=== PATIENT | female | born 1975 | race Caucasian/White ===

== ENCOUNTER → 2019-06-25 12:07 | Outpatient (CLI) | payer SELFPAY ==
--- NOTE | 2019-06-25 12:11 | US_ITS ---
HISTORY: GOITERDIFFICULTY SWALLOWING PT ON SYNTHROID EXAMINATION: US Thyroid (eg thyroid, parathyroid, parotid) TECHNIQUE: Kitchen scale and color doppler imaging was performed of the thyroid gland. COMPARISON: None FINDINGS: RIGHT THYROID LOBE: Measures 6.8 x 2.3 x 1.7 cm. Heterogeneous l echotexture with normal vascularity. No definitive thyroid nodules are present. LEFT THYROID LOBE: Measures 7.1 x 2.6 x 2.2 cm. Heterogeneous echotexture with normal vascularity. No definitive thyroid nodules are present. ISTHMUS: Is thickened to 11 mm and heterogeneous. No thyroid nodules are present. US/Thyroid IMPRESSION: Thickened and enlarged thyroid gland consistent with a benign multinodular goiter without definitive nodule differentiated from the background of heterogeneous tissue at 0256 Reported and signed by: Morgan Jones MD Electronically Signed: Morgan Jones MD at 2:55 EDT Tel , Service support ,
== END ==
PROVIDERS: Family Provider Internal Medicine; PCP Internal Medicine; Referring Provider Internal Medicine; Visit Provider Internal Medicine
DX: E04.9 Nontoxic goiter, unspecified (principal)
CPT/HCPCS: 76536

== ENCOUNTER 2022-01-17 12:38 | Outpatient (CLI) | payer SELFPAY ==
--- NOTE | 2022-01-17 10:30 | EMB_PTH ---
PATIENT: JERRELL FONTANA [facility]: [facility] U#:[id number] AGE/SX: 46/F ROOM: RE01/17/[address]: DREA Handy : 1975 BED: DIS: 01/17/2022 SPEC #: [id number] RECD: 01/17/22 12:18 STATUS: PARI RETorsten #: [id number] OLIVE: 01/17/22 10:[address]: Sissy Perea NP DEPT: SURGICAL PATHOLOGY RECD BY: Stefanie Mace ENTERED: 01/17/22 12:56 SP TYPE: ENDOM BX/C RENZO DR: Dr. Marilyn Lowe DO Tissues: Endometrium, NOS Procedures: Surgery Specimen Level IV HEADER OPERATION: Endometrial biopsy PRE-OP DIAGNOSIS: Abnormal uterine bleeding TISSUE SUBMITTED: Endometrial biopsy MICROSCOPIC DIAGNOSIS Endometrial biopsy: Proliferative endometrium with glandular and stromal breakdown. See comment. BRAD:nathanael 01/18/2022 COMMENT A polypoid fragment of benign endometrial tissue with cystic changes is also noted, may represent fragment of benign endometrial polyp. MICROSCOPIC DESCRIPTION Slides are reviewed. GROSS DESCRIPTION Received is one container labeled with the patient's name and not further designated. The specimen consists of multiple irregular fragments of red-nunez soft tissue that in aggregate measure 3 x 1.5 x 0.1 cm. The specimen is totally submitted in one cassette. / AM:nathanael 01/17/2022 TC:5 CPT: 76245
[2022-01-24 11:12] LABS: HPV APTIMA, High Risk Negative (Negative)
== END 2022-01-17 23:59 | disposition home or self-care (01) ==
LOC: LABSPEC 12:38
PROVIDERS: PCP Internal Medicine; Referring Provider Nurse Practitioner Women's Health; Visit Provider Nurse Practitioner Women's Health
DX: Z12.4 Encounter for screening for malignant neoplasm of cervix (principal); N93.9 Abnormal uterine and vaginal bleeding, unspecified
CPT/HCPCS: 87624; 88175; 88305; G0145

== ENCOUNTER → 2022-01-25 | Outpatient (CLI) | payer SELFPAY ==
--- NOTE | 2022-01-25 12:21 | US_ITS ---
INDICATION: pelvic pain, irregular menses EXAMINATION: US Pelvis Non OB Complete With Transvaginal Imaging TECHNIQUE: Transabdominal and transvaginal pelvic ultrasound was performed. Grayscale, spectral waveform, and color flow Doppler evaluation of the adnexa. COMPARISON: None. FINDINGS: UTERUS: Retroverted. The uterus measures 9.5 x 6.3 x 4.8 cm. There is no uterine mass. The endometrial stripe measures 5 mm in AP diameter which is within normal limits. RIGHT OVARY: Measures 2.9 x 2.2 x 2.1. Non-enlarged, normal echogenicity. There is normal arterial inflow and venous outflow present in the right ovary. LEFT OVARY: Measures 2.9 x 3.3 x 2.3 cm. Non-enlarged, normal echogenicity. There is normal arterial inflow and venous outflow present in the left ovary. FREE FLUID: None. US/Transvaginal Non- IMPRESSION: Normal pelvic ultrasound. Electronically Signed: Juan Wagner MD at 22:25 EDT ,
--- NOTE | 2022-01-25 12:21 | US_ITS ---
INDICATION: pelvic pain, irregular menses EXAMINATION: US Pelvis Non OB Complete With Transvaginal Imaging TECHNIQUE: Transabdominal and transvaginal pelvic ultrasound was performed. Grayscale, spectral waveform, and color flow Doppler evaluation of the adnexa. COMPARISON: None. FINDINGS: UTERUS: Retroverted. The uterus measures 9.5 x 6.3 x 4.8 cm. There is no uterine mass. The endometrial stripe measures 5 mm in AP diameter which is within normal limits. RIGHT OVARY: Measures 2.9 x 2.2 x 2.1. Non-enlarged, normal echogenicity. There is normal arterial inflow and venous outflow present in the right ovary. LEFT OVARY: Measures 2.9 x 3.3 x 2.3 cm. Non-enlarged, normal echogenicity. There is normal arterial inflow and venous outflow present in the left ovary. FREE FLUID: None. US/Pelvic (Non ) IMPRESSION: Normal pelvic ultrasound. Electronically Signed: Juan Wagner MD at 22:25 EDT ,
--- NOTE | 2022-01-25 12:21 | BI_ITS ---
MAMMOGRAPHY - BILATERAL SCREENING 3-D TOMOSYNTHESIS REASON FOR EXAM: Female, 46 years old. screening for breast cancer PERTINENT HISTORY: No significant family history. TECHNIQUE: 2-D mammograms and 3-D Tomosynthesis of the breast (s) were performed. CAD was performed. COMPARISON: None. FINDINGS: The breast composition is heterogeneously dense that can obscure small breast masses. Scattered benign calcifications are seen. No dense spiculated masses or suspicious microcalcifications are identified. No architectural distortion is identified. There is no skin thickening or retraction. There has been no significant change since the prior study. BI/SCRN MAMM (CAD)W/SARAH BILAT IMPRESSION: No mammographic signs of malignancy. Routine yearly mammograms recommended. ASSESSMENT CATEGORY: BIRADS Category 1: Negative. A letter regarding these results will be sent to the patient by the facility within 30 days. FOLLOW UP RECOMMENDATION: Yearly follow up mammogram recommended. (A) Approximately 10% of breast cancers are not detected by mammography. A normal mammogram should not delay biopsy of a clinically suspicious abnormality. Electronically Signed: Keyur Forrest MD at 11:07 EDT ,
== END | disposition home or self-care (01) ==
LOC: OPUS 12:18
PROVIDERS: PCP Internal Medicine; Visit Provider Nurse Practitioner Women's Health
DX: R10.2 Pelvic and perineal pain (principal); Z12.31 Encounter for screening mammogram for malignant neoplasm of breast
CPT/HCPCS: 76830; 76856; 77063; 77067; 93976

== ENCOUNTER → 2022-03-30 | Outpatient (CLI) | payer SELFPAY ==
[2022-03-30 17:39] LABS: Anion Gap 8 (5-15); BUN 14 mg/dL (7-18); BUN/Creat Ratio 19.9 RATIO (10-20); Calcium,Total 9.5 mg/dL (8.5-10.1); Chloride 107 mmol/L (98-107); EST Glomerular Filtration Rate 95 mL/min (>60); Est Glom Filt Rate - Afr Amer 115 mL/min (>60); Glucose 94 mg/dL (74-106); Magnesium 2.2 mg/dL (1.6-2.6); Potassium 3.8 mmol/L (3.5-5.1); Sodium Level 139 mmol/L (136-145)
== END | disposition home or self-care (01) ==
LOC: LAB 16:24
PROVIDERS: PCP Internal Medicine; Referring Provider Internal Medicine Cardiovascular Disease; Visit Provider Internal Medicine Cardiovascular Disease
DX: Z01.810 Encounter for preprocedural cardiovascular examination (principal); I34.1 Nonrheumatic mitral (valve) prolapse; R94.31 Abnormal electrocardiogram [ECG] [EKG]
CPT/HCPCS: 36415; 80048; 83735

== ENCOUNTER → 2022-04-02 | Outpatient (CLI) | payer SELFPAY ==
--- NOTE | 2022-04-02 10:16 | ECHOD_ITS ---
Reason For Study: ABN EKG Procedure This was a 2D Doppler, Color Flow transthoracic echocardiogram. The exam was of adequate technical quality. Exam performed in department. Left Ventricle Normal LV size. Left ventricular systolic function is normal. The estimated ejection fraction is 60 %. No evidence for diastolic dysfunction. No regional wall motion abnormalities noted. Right Ventricle Normal RV size. Normal systolic function. Atria Normal left atrium. Normal right atrium. No doppler evidence for ASD. Mitral Valve There is no mitral annular calcification. Normal mitral valve. Trivial mitral valve insufficiency. Tricuspid Valve Normal tricuspid valve. Trivial tricuspid valve insufficiency. Right ventricular systolic pressure estimated to be 25 mmHg. Aortic Valve Trisinus/trileaflet aortic valve. Normal aortic valve. Pulmonic Valve The pulmonic valve is not well visualized. Trivial pulmonic valve insufficiency. Great Vessels Normal sized aortic root. Pericardium/Pleural No pericardial effusion. MMode/2D Measurements & Calculations LVIDd: 5.2 cm IVSd: 0.92 cm Ao root diam: 3.4 cm LVIDs: 3.8 cm LVPWd: 0.80 cm RVDd: 3.4 cm FS: 27.3 % LAV(MOD-bp): 47.2 ml LVAd ap4: 33.5 cm2 SV(MOD-sp4): 69.9 ml LAV(MOD-bp) Indexed: 21.8 ml/m2 LVLd ap4: 8.5 cm LAV(MOD-sp2): 52.4 ml EDV(MOD-sp4): 111.0 ml LAV(MOD-sp4): 40.3 ml EDV(sp4-el): 111.9 ml LVAs ap4: 18.2 cm2 LVLs ap4: 7.0 cm ESV(MOD-sp4): 41.1 ml ESV(sp4-el): 40.2 ml EF(MOD-sp4): 63.0 % EF(sp4-el): 64.1 % SV(sp4-el): 71.7 ml LA A4 area: 16.1 cm2 LA dimension(2D): 4.2 cm RA A4 area: 15.7 cm2 Doppler Measurements & Calculations MV E max oscar: 93.8 cm/sec Lat Peak E' Oscar: 11.1 cm/sec Med Peak E' Oscar: 8.0 cm/sec MV A max oscar: 75.0 cm/sec E/E' lat: 8.5 E/E' med: 11.7 MV E/A: 1.3 MV V2 max: 110.4 cm/sec MV P1/2t max oscar: 101.9 cm/sec Ao V2 max: 102.2 cm/sec MV max P.9 mmHg MV P1/2t: 124.1 msec Ao max P.2 mmHg MV V2 mean: 49.5 cm/sec MV mean P.2 mmHg MV dec slope: 240.4 cm/sec2 MV V2 VTI: 42.1 cm MVA(P1/2t): 1.8 cm2 LV V1 max: 104.2 cm/sec MR max oscar: 407.7 cm/sec PA V2 max: 86.7 cm/sec LV V1 max P.3 mmHg MR max P.5 mmHg PI dec slope: 136.4 cm/sec2 TR max oscar: 232.0 cm/sec TR max P.6 mmHg ECHO/Echo Complete Interpretation Summary Left ventricular systolic function is normal. The estimated ejection fraction is 60 %. Trivial mitral valve insufficiency. Trivial tricuspid valve insufficiency. Trivial pulmonic valve insufficiency. Right ventricular systolic pressure estimated to be 25 mmHg. No evidence for diastolic dysfunction. Ordering Physician: Juliano Castro Referring Physician: Juliano Castro Performed By: Dahlia Hernandez RCS
--- NOTE | 2022-04-02 10:16 | STEWCON_ITS ---
Reason For Study: ABN ECG/PREOP Stress Results Protocol: Henri Protocol WITH DEFINITY Maximum Predicted HR: 175 bpm Target HR: 149 bpm % Maximum Predicted HR: 81 % DurationHeart Rate Stage (mm:ss) (bpm) BP Comment BASELINE 55 122/846 CC DEFINITY FOR ENTIRE TEST STAGE 1 3:00 90 138/80 STAGE 2 3:00 92 146/86 STAGE 3 3:00 118 158/78 STAGE 4 2:00 141 / INCLINE DIFFICULTY AND HEAVIER BREATHING RECOVERY 75 112/80 Stress Duration: 11:00 mm:ss Maximum Stress HR: 141 bpm METS: 13 Baseline Echocardiogram Findings Stress Echo Wall motion Data Resting WM Intermediate WM Stress WM Resting Wall Motion Wall Motion Stress All segments Normal. All segments Hyperkinetic. Ejection Fraction 55 %. Ejection Fraction 65 %. Stress Results Heart rate response: Technically inadequate (percent predicted maximal heart rate less than 85%) Blood pressure response: Normal resting blood pressure-appropriate response Cardiac rhythm: Isolated PVC in recovery Functional capacity: Good Stopped secondary to: Dyspnea. EKG Data Baseline ECG: Sinus bradycardia; ST/T wave abnormality. Peak exercise ECG: With somatic/motion artifact with no obvious ECG changes. Symptoms with Stress No complaint of chest discomfort during exercise or recovery. ECHO/Stress Test Echo W/Contrast Interpretation Summary Contrast injection performed Negative (technically inadequate: Percent predicted maximal heart rate less matthew n 85%) stress echocardiogram Ordering Physician: Juliano Castro Referring Physician: Juliano Castro Performed By: Zenaida Mercer, DEEPALI, RVT
== END | disposition home or self-care (01) ==
PROVIDERS: PCP Internal Medicine; Referring Provider Internal Medicine Cardiovascular Disease; Visit Provider Internal Medicine Cardiovascular Disease
DX: Z01.810 Encounter for preprocedural cardiovascular examination (principal); I34.1 Nonrheumatic mitral (valve) prolapse; R94.31 Abnormal electrocardiogram [ECG] [EKG]
CPT/HCPCS: 93017; 93306; 93350; Q9957; A4216; C8928

== ENCOUNTER 2022-04-03 05:22 | Day surgery (SDC) | payer SELFPAY ==
--- NOTE | 2022-03-27 12:53 | EKG12_ITS ---
Test Reason : PRE OP Blood Pressure : / mmHG Vent. Rate : 047 BPM Atrial Rate : 047 BPM P-R Int : 158 ms QRS Dur : 092 ms QT Int : 432 ms P-R-T Axes : 038 -01 -24 degrees QTc Int : [address] & T wave abnormality, consider anterolateral ischemia Abnormal ECG Confirmed by MÓNICA TILLMAN, VENITA ([id number]), electronic news gathering editor FIDELIA SELF ([id number]) on 03/28/2022 9:35:03 AM Referred By: Abigail Desai Confirmed By:VENITA SALES MD
[2022-03-27 12:54] LABS: Hematocrit 39.2 % (37-47); Hemoglobin 13.5 g/dL (12.0-15.0); Mean Corp Hgb Conc 34.4 g/dL (32-36); Mean Corpuscular Hgb 31.7 pg (27.0-32.0); Mean Platelet Vol. 10.6 fl (6.2-12.0); Platelet Count 236 K/mm3 (150-450); RBC Distribution Width CV 12.3 % (11.6-14.6); RBC Distribution Width SD 41.3 fl (35.1-43.9); Red Blood Count 4.26 M/mm3 (4.2-5.4)
[2022-03-27 13:26] LABS: Magnesium 2.1 mg/dL (1.6-2.6); Thyroid Stim Hormone (TSH) 2.27 uIU/mL (0.358-3.74)
[2022-04-03] VITALS (10 sets, daily range): BP systolic 93–115; BP diastolic 60–81; PULSE 49–58; RESP 14–18; TEMP 36.3–37.1; O2SAT 99–100; BMI 35.0
[2022-04-03 06:04] LABS: Internal QC Validated? YES +Cl - CLEAR BKGD; Pregnancy, Urine Negative Negative
[2022-04-03] MEDS: Gabapentin 600 MG Tablet PO (06:29)
[2022-04-03] MEDS: Acetaminophen 500 MG Tablet 1000 MG PO (06:29)
[2022-04-03] MEDS: Celecoxib 200 MG Capsule 400 MG PO (06:29)
[2022-04-03 06:30] LABS: Bedside Glucose 87 mg/dL (74-106)
[2022-04-03] MEDS: Scopolamine 1mg/72hr Patch 1 PATCH TD (06:30)
[2022-04-03] MEDS: Lactated Ringers 1,000 ML 40 ML IV (06:31)
--- NOTE | 2022-04-03 06:55 | HP.PCM_ITS ---
History and Physical Date of Admission: 04/03/22 MR#: [id number] Acct: [id number] Name:JERRELL MAE Rep #: [id number] : 1975 ? ? Provider: Dr. Abigail Desai, DO Age/Sex:? 46/F ? ? [place] [facility] [place] Status: Signed Intake Vital Signs ? 03/21/2211:55 Height 5 ft 8 in Weight: 230 lb 2 oz BMI 34.9 BP 116/78 Intake Visit Reasons:?robotic hyst BS cysto Front Desk Team Member Required: No Allergies No Known Allergies Allergy (Verified 03/21/22 11:55) Medications levothyroxine 100 mcg capsule 100 mcg PO DAILY 01/17/22 [History Confirmed 03/21/22] multivitamin 1 tab PO DAILY 01/17/22 [History Confirmed 03/21/22] polyethylene glycol 3350 17 gram/dose oral powder (Miralax) 17 g PO DAILY 01/17/22 [History Confirmed 03/21/22] Post menopausal: No Patient : No : No PFSH Medical History? Hypothyroidism Family History? Other Breast cancer Social History? household members:? spouse number of children:? 3 current occupational status:? unemployed Smoking Status:? Never smoker alcohol intake:? never substance use type:? does not use what type of physical activity do you participate in:? walking seatbelt use:? always do you feel safe at home:? Yes additional social history:? - Peter HPI robotic hyst BS cysto Details: JERRELL FONTANA is a 46 year old who presents for pre-op robotic hyst. ?She has tried ocps and states that the medication makes her feel sick. she has been given options fo an ablation procedure and states that she wants something more definitive. EMB was benign and ultrasound shows a 9 cm retroverted uterus. She has a nursing history and has no questions or concerns about surgery at this time. Female Reproductive History Bleeding Duration: 7 Control Method: none Frequency of changing protection: 4-5 times a day Questions: metorrhagia: No, sexually active: Yes, dyspareunia: No and PCB: No Menopausal Symptoms: Yes hot flashes and Yes weight change Pregancy History ? ? ? 3 ? Elective abortions ? Hx Para ? ? ? 3 ? Spontaneous abortions ? Hx # Term Pregnancies ? Ectopic pregnancies ? Hx # Pregnancies ? Multiple births ? # of living children ? ? ? 3 Past Pregnancies Del. Date Name GA/Weeks Outcome Route Bth Weight Infant Gen Labor Lgth Anesthesia Del Locatn Provider FOB Unknown Valdo? ? 1995 ? Unknown Liliana ? 1997 ? Unknown Miranda ? 1998 ? ROS Const ROS Unobtainable: All systems reviewed & are unremarkable except as noted in H Resp Resp: Reports system reviewed and no additional complaints, except as documented; Denies cough GI GI: Reports as per HPI : Reports hot flashes Psych Psych: Reports system reviewed and no additional complaints, except as documented Exam Const General: cooperative, healthy appearing, comfortable and no acute distress Orientation: alert and oriented x3 HENMT Head: normal to inspection Neck Neck: normal visual inspection Chest Chest palpation & inspection: normal inspection of the chest Resp Effort & Inspection: normal respiratory effort GI Inspection: normal to inspection Palpation: soft and no hepatosplenomegaly Skin General: no rashes or lesions noted Extrem General: normal to inspection Psych Appearance: grossly normal Speech and Movement: speech and movement normal Coding Level of Care Code Off vis,est,level 5 Diagnoses Menorrhagia with irregular cycle? N92.1 Assessment and Plan Assessment and Plan (1) Menorrhagia with irregular cycle: ?Status:?Acute ?Comment: EMB (negative ), US showed a 9.5 cm uterurs), provera until surgery ?Plan: After discussing the patient's diagnosis and treatment plan options, patient wishes to proceed with surgical management.? I have discussed with the patient the risks, benefits, and alternatives of the procedure which include but are not limited to risks of anesthesia, bleeding, infection, possible damage to bowel, bladder, or surrounding vasculature which could lead to additional surgery to evaluate any complications.? Patient agrees to procedure and wishes to proceed.? ACOG/uptodate references given for additional information regarding procedure.? Plan for total robotic hysterectomy, bilateral salpingectomy, cystoscopy. ERAS plan discussed. pt had an abnormal pre-op EKG, this was cleared by Cardiology via a negative stress test and we were given the ok to proceed with surgery. UPDATE- I have seen the patient and performed any clinically relevant updates to the history and physical exam. Abigail Desai,
--- NOTE | 2022-04-03 06:56 | PCM.DC ---
Discharge Instructions Diet Discharge Diet: No restrictions Activity May resume sexual activity in: 6 weeks Weight Bearing Status: Full weight bearing Dressing / Incision Call your doctor if your incision/area has: Continuous Slow Oozing, Sudden Increased Bleeding, Increased Pain/ Swelling, Increased Redness and Foul Smelling Discharge Call your doctor if you observe: Fever of 101 or Higher, Using more than 1 pad per hour, Shortness of breath, Chest pain and Uncontrolled pain Suture Line Care: Avoid Pulling/Pushing and Avoid Pinching/Bending Remove Dressing in: 1 week (if present) Cleanse incision/area with: Soap & Water and Keep Dressing Clean & Dry Follow Up Care Please Follow Up With: Abigail Desai DO When: Call to make an appointment with your doctor for a postop visit in 2 and 6 weeks Test Results: Test results from this visit will be discussed in further detail at your follow-up appointment, if applicable. Discharge Plan Admission Primary Reason for Your Visit: hysterectomy Attending Provider: Abigail Desai Primary Care Provider: Marilyn Lowe Consulting Providers: Ibrahima Oh Discharge Orders/Prescriptions Prescriptions: New ibuprofen 600 mg tablet 600 mg PO Q6H PRN (Reason: pain) 7 Days Qty: 30 0RF oxycodone-acetaminophen [Percocet] 5-325 mg tablet 1 tab PO Q4H PRN (Reason: pain) 7 Days Qty: 30 0RF Continued multivitamin Tablet 1 tab PO DAILY levothyroxine 100 mcg capsule 100 mcg PO DAILY Rx Instructions: 100 mcg x 6 days, 200mcg q Saturday polyethylene glycol 3350 [Miralax] 17 gram/dose powder 17 g PO DAILY Ubrelvy 100 mg tablet 1 tab PO PRN PRN (Reason: Headache) Label Comments: TAKE 1 TABLET BY MOUTH AT ONSET OF HEADACHE Other Ambulatory Orders: ,Urine (Routine) Timeframe: 20220403 Facility: [facility] - Location: Laboratory Ordered By: Dr. Abigail Desai 12 Lead EKG (Routine) Timeframe: 20220327 Location: None Selected Ordered By: Dr. Ibrahima Oh Referrals / Follow Up: Marilyn Lowe DO [Primary Care Provider] - Disposition Disposition (needs filled in before D/C Order can be placed): Home, Self Care
[2022-04-03] MEDS: Cefazolin 2 GM in 0.9% Normal Saline 100 ML IV (07:27)
--- NOTE | 2022-04-03 07:30 | HYST_PTH ---
PATIENT: JERRELL FONTANA [place] [facility] [place][id number] AGE/SX: 46/F ROOM: RE04/03/[address]: Dr. Abigail Desai DO : 1975 BED: DIS: 04/03/2022 SPEC #: [id number] RECD: 04/03/22 09:50 STATUS: PARI RETorsten #: [id number] OLIVE: 04/03/22 07:[address]: Abigail Desai DEPT: SURGICAL PATHOLOGY RECD BY: Stefanie Mace ENTERED: 04/03/22 10:09 SP TYPE: HYSTERECT OTHR DR: MD Dr. Marilyn Daugherty DO Tissues: Uterus, NOS Procedures: Surgery Specimen Level V HEADER OPERATION: ERAS, robotic hysterectomy, salpingectomy, cysto PRE-OP DIAGNOSIS: Menorrhagia with irregular cycle TISSUE SUBMITTED: Cervix, uterus, bilateral fallopian tubes MICROSCOPIC DIAGNOSIS Uterus, cervix, bilateral fallopian tubes, hysterectomy and bilateral salpingectomy: Cervix ? mild chronic cystic cervicitis. Endometrium ? proliferative endometrium. Myometrium ? superficial adenomyosis. Bilateral fallopian tubes ? focal subserosal endometriosis. SJ:rg 04/04/2022 COMMENT Please make reference to previous specimen ([id number]) endometrial biopsy with diagnosis of proliferative endometrium with glandular and stromal breakdown. MICROSCOPIC DESCRIPTION Slides are reviewed. GROSS DESCRIPTION Received in fixative is one container labeled with the patient's name and designated cervix, uterus, bilateral fallopian tube. The specimen consists of a hysterectomy specimen consisting of cervix with uterus and attached bilateral fallopian tubes. The uterus with cervix weighs 166 gm and measures 9.5 x 8 x 5 cm. Serosal surface is focally ragged. The ectocervical mucosa is unremarkable. The external os is oval and patulous in contour. The endocervical canal measures 4 cm in length and the endocervical mucosa is unremarkable. Sections of the cervix reveal two cysts filled with mucoid material. The triangular endometrial cavity measures 5 cm in length and up to 3 cm in width. The endometrium is nunez, glistening without any mass lesion and measures 0.1 cm in thickness. Sections of the uterine wall do not reveal any mass lesion and measures up to 3 cm in thickness. The right fallopian tube measures 7 cm in length and 0.7 cm in diameter. The fimbrial end is identified. Sections reveal unremarkable cut surfaces. The left fallopian tube is similar appearance to right and measures 6 cm in length and 0.7 cm in diameter. [place] [place] sections are submitted in eight cassettes as follows: 1 - anterior cervix, 2 - posterior cervix, 3 & 4 - anterior uterine wall, 5 & 6 - posterior uterine wall, 7 - right fallopian tube, 8 - left fallopian tube. / SJ:nathanael 04/03/2022 TC:5 CPT: 11979
[2022-04-03] MEDS: Bupivacaine Mpf 0.5% 30 ML VIAL (07:59)
[2022-04-03] MEDS: Ondansetron 4 MG/2 ML Vial IV (09:17)
--- NOTE | 2022-04-03 09:24 | OP.PCM_ITS ---
Problems Associated Problem List Diagnoses (1) MVP (mitral valve prolapse): (2) Preoperative cardiovascular examination: (3) Hypothyroidism: (4) Abnormal EKG: (5) Menorrhagia with irregular cycle: Operative Report Date of Procedure: 04/03/22 Preoperative diagnosis: pelvic pain and heavy menses, suspect endometriosis, obesity, enlarged uterus Postoperative diagnosis:pelvic pain and heavy menses, confirmed endometriosis, obesity, enlarged uterus Procedure: Total robotic hysterectomy bilateral salpingectomy, lysis of adhesions and cystoscopy Anesthesia: General endotracheal intubation Estimated blood loss: 50cc Urine output:350cc Drains: None Implanted material: None Complications: None Findings:: 10cm size uterus, marked endometriosis scaring of the posterior cul-de-sac and both ovaries, which were adherent to the posterior superior and inferior aspects fo the uterus. The uterus, adnexa, bowel, and liver were found to be normal. Cystoscopy showed no evidence of leaking at approximately 250 cc of normal saline, positive ureteral orifices and jet flow are seen and no suture material was appreciated in the bladder. Specimens removed: Uterus and cervix, Bilateral tubes Reason for surgery: This is a 46-year-old who presented to my office with history of pelvic pain and heavy menses. The planned procedure is for a robotic hysterectomy the risks benefits and alternatives were discussed with the patient the patient had a clear understanding of the procedure and a consent form was signed. Procedure: The patient was placed in the dorsal low lithotomy position and prepped and draped in the normal sterile fashion both abdominally and in the perineum. Her legs were placed in stirrups a Bledsoe catheter was inserted into the urethra without difficulty. A weighted speculum was placed in the vagina and a single- tooth tenaculum was used to grasp the anterior lip of the cervix. A Vcare uterine manipulator was inserted through the cervix without complication. It was then tied into place at the 2 and 10:00 locations on the cervix. Gloves were changed and attention was turned towards the abdomen. Approximately 23 cm above the pubic symphysis in the midline, and after Marcaine injection, a [8] mm incision was made. An 8 mm trocar was inserted through the laparoscope, then inserted into the abdomen under direct visualization using the laparoscope. Good abdominal placement was noted and no complications were appreciated. An air seal device was utilized to create pneumoperitoneum. At 12 cm lateral to the midline on the left and right sides 8 mm accessory ports were placed. Next a left upper quadrant 8 mm assistant professor of drama port site/airseal was placed. The patient was placed in steep Trendelenburg position. The robot was docked. The hysterectomy was initiated first by taking down fine adhesions of the bowel and omentum off the posterior aspect of the uterus. This was performed using gentle blunt dissection and hydrodisection. The fallopian tube on the left side was noted and th ovary was noted to be adherent to it and the uterus. The ovary was carefully from both with gentle blunt dissection. The fallopian tube mesosalpinx was grasped and the underlying tissue was cauterized and cut to the level of the cornua. Next, the Ovarian ligament was cauterized and cut. The same procedure was performed on the right side, however more adhesions were noted on this side and further dissection of the ovary off the back of the uterus was performed. The round ligament on each side using the vessel sealer device. the broad ligament was then and taken down using the vessel sealer device. Next the bladder flap was taken down without complication. This was done using monopolar cautery to the level of the cervical vaginal junction. After the bladder flap was created, uterine vessels were then isolated and cauterized using the vessel sealer device and EndoShears. At this point the uterine vessels were taken down further starting from the ascending branch, dissecting along the edges of the cervix to the level of the cervical vaginal junction with hemostasis appreciated. The cervical vaginal junction was then using monopolar cautery in a circumferential pattern across the superior aspect of the cervix. The specimen was delivered through the vagina and sent to pathology. The remaining vaginal cuff was then closed using a V lock suture. This was performed in a running technique. Excellent hemostasis was obtained and good closure was noted. Irrigation was then performed. There was noted to be some oozing from the right ovary after dissection, FloSeal and Fibrillar was applied to this ovary. All operative sites were noted to be hemostatic. A cystoscopy was performed with a 70 degree cystoscope through the urethra into the bladder without complication. The bladder was instilled with approximately 250 cc of normal saline. Intraoperative images were made. Ureteral orifices and jets were identified. No suture material was appreciated in the bladder. The bladder was then drained and cystoscope was removed. The abdominal cavity was again examined using the laparoscope after the robot was undocked. All operative sites were noted to be hemostatic. The trochars were removed under direct visualization without complication and pneumoperitoneum was reduced. At this point the skin was then closed using 4-0 Monocryl subcuticular stitch and sealed with surgical glue. The patient tole rated the procedure well sponge lap and needle counts were correct x2 the patient was taken to the recovery room in stable condition. Multi Select Codes Urinary/Genital Urinary/Genital CPT Codes: 80069 TLH+BS/O <250gr uterus
[2022-04-03] MEDS: Ibuprofen 200 MG Tablet 600 MG PO (11:32)
== END 2022-04-03 13:30 | disposition home or self-care (01) ==
LOC: SDC 05:23 → AC 05:23
PROVIDERS: Anesthesiology; PCP Internal Medicine; Referring Provider Obstetrics & Gynecology; Visit Provider Obstetrics & Gynecology
PROC: 0UT90ZZ Resection of Uterus, Open Approach (ICD-10-PCS; CPT 58571; principal; 2022-04-03 07:10)
DX: N92.1 Excessive and frequent menstruation with irregular cycle (principal); N80.0 Endometriosis of uterus; N80.2 Endometriosis of fallopian tube; N72 Inflammatory disease of cervix uteri; N73.6 Female pelvic peritoneal adhesions (postinfective); E66.9 Obesity, unspecified; I34.1 Nonrheumatic mitral (valve) prolapse; Z68.34 Body mass index [BMI] 34.0-34.9, adult; E03.9 Hypothyroidism, unspecified; R94.31 Abnormal electrocardiogram [ECG] [EKG]; Z79.899 Other long term (current) drug therapy
CPT/HCPCS: 58571; S2900; 00840; 36415; 81025; 82962; 83735; 84443; 85027; 86850; 86900; 86901; 88307; 93005; J7120; A4216; J2405; J3475; J3490

== ENCOUNTER 2025-07-05 09:30 | Outpatient (RCR) | payer BC, SELFPAY ==
--- NOTE | 2025-05-21 15:48 | HP.PTEVAL_ITS ---
Patient's Visit Information Visit Information Visit Information: JERRELL FONTANA is a 49 year old F referred to Physical Therapy by Dr. Marilyn Lowe DO with a diagnosis of L hip pain, L tennis elbow. Date of Evaluation: 05/21/25 Physical Therapist: Ibrahima Sheffield, AAYUSHT, OCS, CSCS Visit Plan Frequency: 3x /Week Duration: 4-6 Weeks Plan: 3x/week for 3-6 weeks , start 3... IE HEP: prirormis and ITB stretch and L wrist ext stretch all 30" 5x 2x/day and modify activity to avoid pain increase. Treat elbow L with US nonthermal, STM to wrist exxtensors adn stretch and eccentric strength wrist. Treat Hip with theermal US to R piriformis /gluteal area, Deep tissue to same, hip strength adn reeturn to jog activities and strength once feeling better. Subjective Subjective: Hip pain in posterior L hip but started in groin area , good days and bad days, Started after running 5 miles and could not walk well the next day 3 months. has some chronic hip pain but nothing like this. Was running prior to this incident. x rays: no results. 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 Achy at rest. Constant with WB. Sleep is OK but hard to gt comfy. 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 Regular ex: running and biking and rowing and lifted 3x/week: leg curls, knee ext, Can't do it now. L elbow tndonitis after fixing pool pump 8 weeks ago and hurt ever since. reinjure. takes alleve, 0 at rest, lifting 7/10, sleep Ok with this, activities pretty normal but puts up with pain Pain L hip: Pain Intensity (Out of 10): 2 Pain Intensity Range: 1 and 4 Objective Objective: cervical and lumbar ROM without pain or deficit today. Posture is forward head adn flat lumbar lordosis but unremarkable. UE AROM WFL, tender to palpation L lateral epicondyle mildly, wrist ext is tender and painful and stretching wrist extensors hurts on L. + tennis elbow tests. Tenderness to palpation L piriformis and gluteal bodiees maximally on L and not on R. ROM of the hips are WFL, rotations IR and er L are painful end range but not limited. + FABR and FADDIR on L. strength extension hips aree 3+L and 4 R, abd 4+ B, flexion 4 B. knee extension adn flexion 4+ B without pain. ankles 4+/5. reflexes 2/3 patella and achilles B sensation LE WNL to gross light touch. Balance/Special Test Scores Lower Extremity Functional Score: 61 Goals Goal 1:: I appropriate mgmt of HEP for hip and elbow pain(streetches strength adn eccentrics.) Goal Time Frame: 4-6 Weeks Goal 2:: Pain L elbow 1/10 at worst and 90% improved. Goal Time Frame: 4-6 Weeks Goal 3:: Pain L hip 1/10 at worst adn 80% better Goal Time Frame: 4-6 Weeks Goal 4:: able to start jogging again without pain Goal Time Frame: 4-6 Weeks Goal 5:: sleep without discomfort Goal Time Frame: 4-6 Weeks Goal 6:: LEFS scoree 70 Goal Time Frame: 4-6 Weeks Rehabilitation Potential Physical Therapy Diagnosis: tenderness, pain and weakness limiting cofmortable function. Rehabilitation Potential: Good Anticipated Interventions Patient/Client Instruction: Educate patient on: Condition and Plan of Care For the Purpose of:: To decrease pain, To increase ROM, To improve nutrient delivery to tissue, To improve muscle performance and motor function, To increase tolerance to activity/condition/position, To improve ability of physical actions for home/community/work/leisure, To improve gait and locomotor functions and To improve health of tissue Therapeutic Exercise to Include: Strength training, Postural training, Flexibilty training, Passive ROM and Active ROM For the Purpose of:: To decrease pain, To increase ROM, To improve nutrient delivery to tissue, To increase oxygenation perfusion, To improve muscle performance and motor function, To increase tolerance to activity/condition/position, To improve ability of physical actions for home/com munity/work/leisure and To improve gait and locomotor functions Manual Therapy Techniques to Include: Trigger point massage, Passive ROM and Soft tissue mobilization For the Purpose of:: To decrease pain, To increase ROM, To improve nutrient delivery to tissue and To improve muscle performance and motor function Ultrasound (thermal/non thermal): Yes For the Purpose of:: To decrease pain and To improve nutrient delivery to tissue Text: Thank you for the opportunity to evaluate your patient. For Medicare and Medicare HMO plans, please review the plan of care and approve it. It will need to be FAXED BACK to us at [phone] for Medicare purposes. For Medicare only, by signing this I certify the plan of care. Please let me know if there are questions or concerns regarding this plan of care. Physician Signature: Date:
--- NOTE | 2025-07-05 09:47 | HP.PTDCSUM ---
Discharge Summary D/C summary: It has been my pleasure to treat JERRELL FONTANA referred by Dr. Marilyn Lowe DO, with the diagnosis of L hip pain, L tennis elbow for a total of 11 visit(s). Discharge Date: 07/05/25 Please see the following information for a summary of their discharge status. Subjective Subjective: Improving, pain is decreasing slowly. Able to do more activities. Started TM joggng adn doing 20 minutes with 2 min intervals and no pain,.Activitiy garcía : dpoing it all in small amounts. Moslty no pain. Pain 1/10. Gets tight with jogging. Sleeping well. Arm is good. exercises going well. Ready to wean back to running full on own and will continue strength adn streteching 2-3x/week. Pain L hip: Pain Intensity (Out of 10): 2 L Elbow: Pain Intensity (Out of 10): 0 ust: Pain Intensity (Out of 10): 0 Overall Improvement % Improvement: 75 Objective Objective/Function: Full aROM hip and elbow/wrist, no pain with ROM, good flexibility and strength 4+ hip abd and eext and flexion without pain. walking well, marching without pain. Goals Goal 1:: I appropriate mgmt of HEP for hip and elbow pain(streetches strength adn eccentrics.) Goal Progress: Goal Met Goal 2:: Pain L elbow 1/10 at worst and 90% improved. Goal Progress: 80% Goal 3:: Pain L hip 1/10 at worst adn 80% better Goal Progress: Goal Met Goal 4:: able to start jogging again without pain Goal Progress: Goal Met Goal 5:: sleep without discomfort Goal Progress: Goal Met Goal 6:: LEFS scoree 70 Goal Progress: Progressing Plan Plan: d/c to [facility] D/C Information d/c sentence: If there are questions or concerns regarding this patient's physical therapy, please feel free to call me at [phone]. Thank you for the referral of this patient. Sincerely, Ibrahima Sheffield, DPT, OCS, CSCS Balance/Gait/Functional tests Balance/Special Test Scores Lower Extremity Functional Score: 66 Improvement % Improvement: 75
== END 2025-07-05 09:54 | disposition home or self-care (01) ==
LOC: PT 09:30
PROVIDERS: PCP Internal Medicine; Referring Provider Internal Medicine; Visit Provider Internal Medicine
DX: M25.552 Pain in left hip (principal); M77.12 Lateral epicondylitis, left elbow
CPT/HCPCS: 97035; 97110; 97140; 97162; 97164; 97530